=== PATIENT | female | born 1965 | race Caucasian/White ===

== ENCOUNTER 2022-10-22 08:56 | Emergency (ER) | payer BC ==
[~2022-10-22] VITALS: Ht 162.6 cm; Wt 59.0 kg
[2022-10-22] MEDS ORDERED: IV NORMAL SALINE 1000 ML BAG IV ONE (09:00)
[2022-10-22] MEDS ORDERED: ONDANSETRON 4 MG/2 ML VIAL IV ONE (09:00)
[2022-10-22] MEDS ORDERED: ONDANSETRON 4 MG/2 ML VIAL ONE (09:17)
[2022-10-22 09:21] LABS: PLATELET COUNT (AUTO) 258 K/uL (179-408)
[2022-10-22 09:36] LABS: CREATININE 0.9 mg/dL (0.6-1.3); POTASSIUM 3.6 mmol/L (3.5-5.1)
[2022-10-22 09:42] LABS: BILIRUBIN,DIRECT 0.1 mg/dL (0.0-0.2); BILIRUBIN,TOTAL 0.4 mg/dL (0.2-1.0)
[2022-10-22 09:52] LABS: HEMATOCRIT 43.9 % (31.2-41.9); MEAN CORPUSCULAR HEMOGLOBIN 31.3 uug (24.7-32.8)
[2022-10-22 10:33] LABS: *URINE HCG, QUAL NEGATIVE (NEGATIVE)
[2022-10-22 10:37] LABS: *BLOOD, URINE NEGATIVE (NEGATIVE); *CLARITY,URINE CLEAR (CLEAR); *COLOR,URINE YELLOW (YELLOW); *KETONES,URINE 1+ (NEGATIVE); *UROBILINOGEN,URINE 0.2 E.U./dl (NORMAL); LEUKOCYTE ESTERASE ,URINE NEGATIVE (NEGATIVE); NITRITE, URINE NEGATIVE (NEGATIVE); UGLUCOSE NEGATIVE (NEGATIVE)
[2022-10-22 10:57] LABS: *BILIRUBIN,URIN 1+ (NEGATIVE)
[2022-10-22] MEDS ORDERED: ONDA4TAB5 PO (11:54)
--- NOTE | 2022-10-22 12:30 | NUR ---
Patient discharged to home in stable condition. Written and verbal after care instructions given. Patient verbalizes understanding of instructions. Stressed follow up or return to ER for worsening s/s.
--- NOTE | 2022-10-22 12:30 | NUR ---
IV removed. Catheter intact and site benign. Pressure and 4x4 gauze applied to site. No bleeding noted.
== END 2022-10-22 12:37 | disposition home or self-care (01) ==
LOC: ER 08:56
DX: R11.2 Nausea with vomiting, unspecified (principal); R19.7 Diarrhea, unspecified; R74.8 Abnormal levels of other serum enzymes; R07.89 Other chest pain; Z88.8 Allergy status to other drugs, medicaments and biological substances
CPT/HCPCS: 99285; 96374; 76705; 96361; 80076; 80048; 81003; 84703; 83690; 85025; 36415; 93005; J2405; J7040; A4663